=== PATIENT | female | born 1960 | race Caucasian/White ===

== ENCOUNTER 2019-12-01 18:45 | Emergency (ER) | payer MEDICAID ==
[~2019-12-01] VITALS: Ht 162.6 cm; Wt 122.0 kg
[~2019-12-01 18:45] MED LIST: ASPI-1265 PO; ASPI-611 PO; CALC-793 PO; DOCU-28 PO; DULO60CA45 PO; DULO60CA63 PO; LEVO100T PO; LORA10CA PO; LORA10TA7 PO; MULT-620 PO; MULTIVITAMIN; OMEP20CA15 PO; OSC500T PO; SIMVASTATIN
[2019-12-01 19:08] VITALS: BP 159/101
--- NOTE | 2019-12-01 20:09 | NUR ---
CARYL You with the patient.
--- NOTE | 2019-12-01 21:24 | NUR ---
[facility] CALLED BACK AT 21:[address]
== END 2019-12-01 23:14 | disposition home or self-care (01) ==
LOC: ER 18:46
DX: R60.0 Localized edema (principal); Z79.82 Long term (current) use of aspirin; Z79.899 Other long term (current) drug therapy
CPT/HCPCS: 93971; 99284

== ENCOUNTER 2023-01-07 19:49 | Emergency (ER) | payer MEDICAID ==
[~2023-01-07] VITALS: Ht 165.1 cm; Wt 113.6 kg
[~2023-01-07 19:49] MED LIST changes: -DULO60CA45 PO; +DULO60CA60 PO
[2023-01-07 19:52] VITALS: BP 165/89
[2023-01-07] MEDS ORDERED: SULF1TAB45 PO (22:14)
[2023-01-07] MEDS ORDERED: sulfamethoxazole/trimethoprim DS (800/160mg) tablet PO ONE (22:15)
== END 2023-01-07 22:21 | disposition home or self-care (01) ==
LOC: ER 19:50
DX: L73.9 Follicular disorder, unspecified (principal)
CPT/HCPCS: 99283

== ENCOUNTER 2023-06-26 12:28 | Emergency (ER) | payer MEDICAID ==
[~2023-06-26] VITALS: Ht 165.1 cm; Wt 117.1 kg
[2023-06-26] MEDS ORDERED: potassium Cl 20 mEq SR tablet PO STA (13:45)
[2023-06-26] MEDS ORDERED: furosemide 20MG tablet PO ONE (13:45)
[2023-06-26 14:09] VITALS: BP 113/60; PULSE 90; RESP 16; TEMP 98.4; O2SAT 95
== END 2023-06-26 14:13 | disposition home or self-care (01) ==
LOC: ER 12:29
DX: R60.0 Localized edema (principal); E11.9 Type 2 diabetes mellitus without complications; Z79.899 Other long term (current) drug therapy; Z79.1 Long term (current) use of non-steroidal anti-inflammatories (NSAID); Z79.2 Long term (current) use of antibiotics
CPT/HCPCS: 99283